=== PATIENT | female | born 1990 | race Caucasian/White ===

== ENCOUNTER 2022-08-17 08:29 | Day surgery (SDC) | payer OTHER ==
[2022-08-15 10:22] VITALS: BMI 44.3
[~2022-08-17 08:29] MED LIST: DEXAMETHASONE SOD PHOSPHATE 4 MG/ML 1 ML VIAL IV ONE; HYDROmorphone 0.5 MG/0.5 ML SYRINGE IVP PRN; LACTATED RINGERS 1,000 ML IV SCH; MIDAZOLAM 2 MG/2 ML VIAL IV PRN; ONDANSETRON 4 MG/2 ML VIAL IVP ONE; Pre Op ABX Message 1 EACH MISC MISCELLANE ONE; SCOPOLAMINE 1 MG/72 HR PATCH TRANSDERM ONE
[2022-08-17 08:51] VITALS: RESP 16; TEMP 97.2
[2022-08-17] MEDS ORDERED: PROPOFOL 10 MG/ML 20 ML VIAL IV ONE (09:46)
[2022-08-17] MEDS ORDERED: KETAMINE 10 MG/ML 20 ML VIAL ONE (09:46)
[2022-08-17] MEDS ORDERED: fentaNYL (PF) 50 MCG/ML 2 ML AMP ONE (09:46)
[2022-08-17] MEDS ORDERED: MIDAZOLAM 2 MG/2 ML VIAL ONE (09:46)
[2022-08-17] MEDS ORDERED: LIDOCAINE 2% INJ 20 MG/ML (2 ML VIAL) ONE (09:46)
[2022-08-17] MEDS ORDERED: BUPIVACAINE (PF) 0.25% 30 ML VIAL SQ ONE (10:00)
[2022-08-17 10:43] VITALS: BP 144/88; PULSE 74
--- NOTE | 2022-08-17 12:23 | P.OP ---
Date of Procedure: 08/17/22 Preoperative Diagnosis: Soft tissue mass right foot Postoperative Diagnosis: Same Procedure(s) Performed: Excision of soft tissue mass deep to the fascia right foot Implants: None Anesthesia: GETA, MAC, local Estimated Blood Loss (ml): 2 Pathology: other (2.5 cm x 2.5 cm x 0.5 cm soft tissue mass right foot) Condition: stable Disposition: PACU Description of Procedure: The patient brought into the operative room placed on table supine position. Timeout was taken to confirm correct patient of ours, correct the laterality surgery, and correct procedure. When all staff in the room were in agreement with the timeout, the patient was placed under IV sedation anesthesia. A tourniquet was placed on the right ankle and a bump underneath the right hip to internally rotate the right leg. Then 20 mL of 0.25% Marcaine was injected as a midfoot block and a posterior tibial nerve block. The right foot was then prepped and draped usual manner. The foot was exsanguinated and the tourniquet inflated to 250 mmHg. Attention directed over the dorsal lateral aspect of the fifth metatarsal phalangeal joint where the soft tissue mass was located. The incision was deepened down to the subcutaneous tissue careful to identify, avoid, and retract any neurovascular structures and cauterize any bleeding vessels. Blunt dissection was continued down to the soft tissue mass. Soft tissue masses well-defined and easily dissected away from the overlying subcutaneous tissue. The mass also extended plantarly deep to the fifth metatarsal head. The mass was excised in total and removed from the surgical field. The mass measured 2.5 cm x 2.5 cm x 0.5 cm. It was firm without any fluid within the cavity. The wound is then thoroughly irrigated with antibiotic saline. Because of the size of the lesion there was excess skin present. Therefore wedge excision of skin was performed. And then the incision was closed with 4-0 Monocryl in the subcutaneous layer and 3-0 nylon in the skin layer area an Arthrex jumpstart dressing is applied and a bulky dry dressing applied to the right foot. Tourniquet was released and capillary refill return to all digits of the right foot. She tolerated the above procedure and anesthesia well and went to recovery with vital signs stable
== END 2022-08-17 10:58 | disposition home or self-care (01) ==
LOC: OR 08:29
PROVIDERS: ATTEND Podiatrist
DX: L72.0 Epidermal cyst (principal); K21.9 Gastro-esophageal reflux disease without esophagitis; Z79.1 Long term (current) use of non-steroidal anti-inflammatories (NSAID); F12.20 Cannabis dependence, uncomplicated; Z98.51 Tubal ligation status; Z98.890 Other specified postprocedural states; Z82.49 Family history of ischemic heart disease and other diseases of the circulatory system; F17.200 Nicotine dependence, unspecified, uncomplicated; F10.20 Alcohol dependence, uncomplicated; E66.01 Morbid (severe) obesity due to excess calories; Z68.42 Body mass index [BMI] 45.0-49.9, adult
CPT/HCPCS: 28039; 81025; 88305; J2250; J1100; J2405; J3010; J2704; J2001

== ENCOUNTER → 2023-05-29 | Outpatient (CLI) | payer OTHER ==
--- NOTE | 2023-05-29 19:50 | MR ---
EXAMINATION TYPE: MR knee LT wo con DATE OF EXAM: 05/29/2023 COMPARISON: None HISTORY: 32-year-old female M23.362, Pain in left knee, effusion, meniscus derangement, possible tear TECHNIQUE: Multiplanar, multisequence imaging of the left knee is performed without IV contrast. FINDINGS: Prominent heterogeneous red marrow is present throughout. No suspicious bone marrow replace ment. The ACL and PCL are intact. Very mild edema overlying the intact MCL. Inhomogeneous intermediate signal within the proximal LCL proper and additional linear intrasubstance signal within the popliteus tendon. LCL complex otherwise intact. Medial compartment shows superficial cartilage fraying along the mid central aspect of the medial fem oral condyle articular surface. Medial meniscus shows some degenerative signal at the junction of the posterior horn and body but wit hout discrete tear. Lateral compartment articular cartilage volume is maintained. There is complex multidirectional tear involving the body of the lateral meniscus. Mild diffuse thinning of trochlear articular cartilage. Patellar articular cartilage is maintained. Some focal intermediate signal at the proximal deep fibers of the patellar tendon. Extensor mechanism otherwise intact. There is some focal edema within Hoffa's fat inferior and lateral to the patella. There is a small-to -moderate knee joint effusion. No sizable Carl's cyst. Normal popliteal artery anatomy and muscle bulk. IMPRESSION: 1. Complex multidirectional tear involving the body of the lateral meniscus. 2. Grade 1 MCL sprain. 3. Grade 1 versus chronic sprain of the proximal LCL proper. Possible short segment split tear of the popliteus tendon. 4. Focal edema in Hoffa's fat inferior and lateral to the patella may be seen in the setting of fat p ad impingement syndrome. 5. Mild proximal patellar tendinosis.
== END | disposition home or self-care (01) ==
LOC: RADMRIMAIN 13:30
PROVIDERS: ATTEND Orthopaedic Surgery Sports Medicine
DX: S83.282A Other tear of lateral meniscus, current injury, left knee, initial encounter (principal); R60.0 Localized edema; S83.411A Sprain of medial collateral ligament of right knee, initial encounter; M67.864 Other specified disorders of tendon, left knee

== ENCOUNTER → 2023-07-15 | Outpatient (CLI) | payer OTHER ==
--- NOTE | 2023-07-15 13:43 | US ---
EXAMINATION TYPE: US venous doppler duplex LE LT DATE OF EXAM: 07/15/2023 1:11 PM COMPARISON: NONE CLINICAL INDICATION: Female, 32 years old with history of M79.662 PAIN IN LEG; Pain since Saturday. P atient had torn meniscus surgery 07/08/23. No hx of DVT. Patient does not take blood thinners. SIDE PERFORMED: Left TECHNIQUE: The lower extremity deep venous system is examined utilizing real time linear array sonog shantel with graded compression, doppler sonography and color-flow sonography. VESSELS IMAGED: Common Femoral Vein Deep Femoral Vein Greater Saphenous Vein * Femoral Vein Popliteal Vein Small Saphenous Vein * Proximal Calf Veins (* superficial vessels) Left Leg: No evidence of DVT. IMPRESSION: 1. No diagnostic evidence of DVT as visualized.
== END | disposition home or self-care (01) ==
LOC: RADUSWWP 12:44
PROVIDERS: ATTEND Orthopaedic Surgery
DX: M79.662 Pain in left lower leg (principal)